=== PATIENT | female | born 1990 | race American Indian/Alaskan Native ===

== ENCOUNTER 2016-09-28 13:26 | Outpatient (CLI) | payer MEDICAID | END 2016-09-28 13:27 | disposition home or self-care (01) | DX: Z36 Encounter for antenatal screening of mother (principal) ==

== ENCOUNTER 2016-11-06 09:44 | Outpatient (CLI) | payer MEDICAID | END 2016-11-06 09:45 | disposition home or self-care (01) | DX: Z11.3 Encounter for screening for infections with a predominantly sexual mode of transmission (principal) ==

== ENCOUNTER 2016-11-30 10:50 | Outpatient (CLI) | payer MEDICAID | END 2016-11-30 10:51 | DX: Z34.03 Encounter for supervision of normal first pregnancy, third trimester (principal) ==

== ENCOUNTER 2016-12-10 23:25 | Outpatient (CLI) | payer MEDICAID | END 2016-12-11 00:28 | disposition home or self-care (01) | DX: O36.8130 Decreased fetal movements, third trimester, not applicable or unspecified (principal); Z3A.37 37 weeks gestation of pregnancy ==

== ENCOUNTER 2016-12-21 10:19 | Outpatient (CLI) | payer MEDICAID | END 2016-12-21 10:20 | disposition home or self-care (01) | DX: Z01.812 Encounter for preprocedural laboratory examination (principal); O32.1XX0 Maternal care for breech presentation, not applicable or unspecified ==

== ENCOUNTER 2016-12-23 05:38 | Inpatient (IN) | payer MEDICAID ==
[2016-12-23] MEDS ORDERED: SODIUM CHLORIDE FLUSH 0.9% 10 ML SYRINGE IVP ONE ×4 (05:59→21:43)
[2016-12-23] MEDS ORDERED: ceFAZolin 1 GM in SODIUM CHLORIDE 0.9% MINIBAG 100 ML IV SCH (06:00)
[2016-12-23] MEDS ORDERED: CITRIC ACID/SODIUM CITRATE 15 ML UDC PO SCH (06:00)
[2016-12-23] MEDS ORDERED: LACTATED RINGERS 1,000 ML IV SCH ×3 (06:00→12:00)
[2016-12-23] MEDS ORDERED: TERBUTALINE 1 MG/ML VIAL SUBQ ONE (07:05)
[2016-12-23] MEDS ORDERED: METHYLERGONOVINE 0.2 MG/ML AMP IVP ONE (08:00)
[2016-12-23] MEDS ORDERED: OXYTOCIN 10 UNIT/ML VIAL IV ONE (08:00)
[2016-12-23] MEDS ORDERED: CARBOPROST TROMETHAMINE 250 MCG/ML AMP IM ONE (08:00)
[2016-12-23] MEDS ORDERED: LACTATED RINGERS 1,000 ML IV ONE (08:14)
[2016-12-23] MEDS ORDERED: KETOROLAC 30 MG/ML VIAL ONE (09:30)
[2016-12-23] MEDS ORDERED: OXYTOCIN/LACTATED RINGERS 250 ML IV ONE ×2 (10:06→15:37)
[2016-12-23] MEDS ORDERED: ONDANSETRON 4 MG/2 ML VIAL IVP PRN ×2 (11:28→14:00)
[2016-12-23] MEDS ORDERED: KETOROLAC 30 MG/ML VIAL IV SCH (12:00)
[2016-12-23] MEDS: diphenhydrAMINE 25 MG CAPSULE PO PRN (12:09)
[2016-12-23] MEDS: ACETAMINOPHEN 500 MG TABLET PO SCH ×2 (12:09→21:40)
[2016-12-23] MEDS ORDERED: METOCLOPRAMIDE 10 MG/2 ML VIAL IVP PRN (13:03)
[2016-12-23] MEDS ORDERED: NALOXONE 0.4 MG/ML VIAL IVP PRN (14:00)
[2016-12-23] MEDS ORDERED: NALBUPHINE 20 MG/ML AMP IVP PRN (14:00)
[2016-12-23] MEDS ORDERED: diphenhydrAMINE 25 MG CAPSULE PO PRN (14:00)
[2016-12-23] MEDS ORDERED: diphenhydrAMINE INJ 50 MG/ML VIAL IVP PRN (14:00)
[2016-12-23] MEDS: SIMETHICONE CHEW 80 MG TABLET PO SCH ×2 (15:40→21:41)
[2016-12-23] MEDS: KETOROLAC 30 MG/ML VIAL IV SCH ×2 (15:40→21:41)
[2016-12-23] MEDS: OXYTOCIN/LACTATED RINGERS 250 ML IV SCH ×2 (18:15→21:33)
[2016-12-23] MEDS: oxyCOD/ACETAMIN 5 MG/325 MG TABLET PO PRN (19:46)
[2016-12-23] MEDS: DOCUSATE SODIUM 100 MG CAPSULE PO SCH (20:03)
[2016-12-24] MEDS: oxyCOD/ACETAMIN 5 MG/325 MG TABLET PO PRN ×2 (02:00→15:39)
[2016-12-24] MEDS: OXYTOCIN/LACTATED RINGERS 250 ML IV SCH (04:28)
[2016-12-24] MEDS ORDERED: SODIUM CHLORIDE FLUSH 0.9% 10 ML SYRINGE IVP ONE ×3 (04:30→11:20)
[2016-12-24] MEDS: ACETAMINOPHEN 500 MG TABLET PO SCH ×3 (04:34→21:19)
[2016-12-24] MEDS: KETOROLAC 30 MG/ML VIAL IV SCH ×2 (04:34→10:30)
[2016-12-24] MEDS: DOCUSATE SODIUM 100 MG CAPSULE PO SCH ×2 (10:30→20:51)
[2016-12-24] MEDS ORDERED: ENOXAPARIN 80 MG/0.8 ML SYRINGE SUBQ SCH (11:00)
[2016-12-24] MEDS ORDERED: IOPAMIDOL-300 100 ML VIAL IVP ONE (12:04)
[2016-12-24] MEDS: SIMETHICONE CHEW 80 MG TABLET PO SCH ×3 (14:03→21:20)
[2016-12-24] MEDS: IBUPROFEN 800 MG TABLET PO SCH ×2 (15:38→21:19)
[2016-12-25] MEDS: IBUPROFEN 800 MG TABLET PO SCH ×4 (04:10→23:25)
[2016-12-25] MEDS: diphenhydrAMINE 25 MG CAPSULE PO PRN (04:50)
[2016-12-25] MEDS: ACETAMINOPHEN 500 MG TABLET PO SCH ×3 (06:21→23:28)
[2016-12-25] MEDS: SIMETHICONE CHEW 80 MG TABLET PO SCH ×3 (06:21→23:31)
[2016-12-25] MEDS: DOCUSATE SODIUM 100 MG CAPSULE PO SCH ×2 (10:58→21:54)
[2016-12-25] MEDS: oxyCOD/ACETAMIN 5 MG/325 MG TABLET PO PRN (21:54)
[2016-12-26] MEDS: IBUPROFEN 800 MG TABLET PO SCH (05:37)
[2016-12-26] MEDS: SIMETHICONE CHEW 80 MG TABLET PO SCH (05:38)
[2016-12-26] MEDS: ACETAMINOPHEN 500 MG TABLET PO SCH (08:17)
[2016-12-26] MEDS: DOCUSATE SODIUM 100 MG CAPSULE PO SCH (08:18)
== END 2016-12-26 10:20 | disposition home or self-care (01) | DRG 766 ==
PROC: 10D00Z1 Extraction of Products of Conception, Low, Open Approach (ICD-10-PCS; principal; 2016-12-23 07:30)
DX: O32.1XX0 Maternal care for breech presentation, not applicable or unspecified (principal); O99.89 Other specified diseases and conditions complicating pregnancy, childbirth and the puerperium; R07.81 Pleurodynia; Z3A.39 39 weeks gestation of pregnancy; Z37.0 Single live birth

== ENCOUNTER 2020-05-30 16:47 | Emergency (ER) | payer MEDICAID ==
--- NOTE | 2020-05-30 17:15 | ED Physician Documentation ---
PD HPI OPHTHO - Stated complaint Stated Complaint: DIZZY/LOSS OF VISION - Chief complaint Chief Complaint: Heent - History obtained from History obtained from: Patient - History of Present Illness Timing - onset: How many months ago (1) Timing - duration: Months (1) Timing - details: Gradual onset, Still present (noted some intermittent black "floaters" in right eye for the past month. Noted it more prominent the past couple of days, and was interfering with her vision enough today for her to feel concerned about driving. The floaters seem worse in sunlight. No flashing lights/ wavy lines. No quadrant loss.) Location: Right, Other (she has noted some occasional black spot/floaters left eye. No eye pain.) Associated symptoms: Loss of vision (in rounded areas that move with her changing position. She states she has normal vision in peripheral areas.). No: Redness, Swelling, Photophobia Contributing factors: No: Recent URI, FB, Blunt trauma, Wears contacts Similar symptoms before: Has not had sx before Recently seen: Not recently seen (stopped at her starch [employer] office (where she gets her Rx glasses) but no editorial cartoonist there at the time, just the starch cooker, who thought her eye seemed okay at the time.) Review of Systems Constitutional: denies: Fever, Chills Eyes: reports: Decreased vision (just in the black spots area, no quadrant field loss.), Discharge. denies: Photophobia, Irritation Nose: denies: Rhinorrhea / runny nose, Congestion, Sinus pressure / pain Throat: denies: Sore throat Respiratory: denies: Cough Skin: denies: Rash, Lesions Neurologic: reports: Headache (mild at times, not consistent, and no associated scotomata.) PD PAST MEDICAL HISTORY - Past Medical History Cardiovascular: None Respiratory: None Neuro: None Endocrine/Autoimmune: None - Present Medications Home Medications: Ambulatory Orders Medication Instructions Recorded Confirmed Cetirizine [ZyrTEC] 10 mg PO DAILY 05/30/20 05/30/20 - Allergies Allergies/Adverse Reactions: Allergies Allergy/AdvReac Type Severity Reaction Status Date / Time kiwi Allergy Intermediate Edema Uncoded 05/30/20 16:57 - Social History Smoking Status: Never smoker PD ED PE NORMAL - Vitals Vital signs reviewed: Yes - General General: Alert and oriented X 3, No acute distress, Well developed/nourished - HEENT HEENT: PERRL, EOMI, Moist mucous membranes - Neck Neck: Supple, no meningeal sign, No adenopathy PD ED PE EXPANDED - Eyes Eyes: PERRL, EOMI, Anterior chambers clear, Other (able to see in all quadrants peripherally. IOP is 18 by TonoPen. ). No: Papilledema (the fundus appears normal. The retinal vessels appear okay. There is some turbidity in psterior chamber lower lateral area, so could be c/w hemorrhage in posterior chamber. ) Results - Vitals Vitals: Vital Signs - 24 hr 05/30/20 05/30/20 16:55 18:57 Temperature 36.9 C Heart Rate 93 89 Respiratory 18 18 Rate Blood Pressure 118/76 108/78 O2 Saturation 98 100 Oxygen O2 Source Room air - Labs Labs: Laboratory Tests 05/30/20 18:53 POC Whole Bld Glucose 115 H PD MEDICAL DECISION MAKING - ED course Complexity details: re-evaluated patient (with right eye dilated, I could see better view and had similar to initial exam, with some turbid fluid right lower eye so I could not see all corners. ), considered differential (consider retinal detachment (partial), posterior vitrous hemorrhage, glaucoma (though not really the symptoms); does not sound like migraine pattern. Does not sound like elevated ICP. ), d/w patient ED course: will give her names for Ophthalmologists for recheck. Departure - Departure Disposition: 01 Home, Self Care Clinical Impression: Visual floaters Qualifiers: Laterality: right Qualified Code(s): H43.391 - Other vitreous opacities, right eye Retinal hemorrhage Qualifiers: Laterality: right Qualified Code(s): H35.61 - Retinal hemorrhage, right eye Condition: Stable Record reviewed to determine appropriate education?: Yes Instructions: Flashes and Floaters Follow-Up: Lopez Evans MD [Provider Admit Priv/Credential] - Comments: It looks like some small clumps of blood on the lower visual field. This typically is a small blood vessel that broke open in the back of the eye. Rest and sleep inclined and try to avoid any vigorous activity nor bending over and back up until follow-up. Follow-up with an landscaping specialist tomorrow. I gave her the name of Dr. Evans who is affiliated with the [facility]. Another possibility is [facility] in [place] (they are a extension of a group in [place] with the phone #[phone]); call them tomorrow and see if they would be able to see you if Dr. Evans cannot. Discharge Date/Time: 05/30/20 19:17
[2020-05-30] MEDS ORDERED: TROPICAMIDE 1% OPHTH 2 ML DROPS RIGHTEYE STA (18:12)
[2020-05-30] MEDS ORDERED: TROPICAMIDE 1% OPHTH 15 ML DROPS RIGHTEYE STA (18:27)
[2020-05-30 19:08] VITALS: BP 108/78
== END 2020-05-30 19:17 | disposition home or self-care (01) ==
LOC: ED 16:47
DX: H43.391 Other vitreous opacities, right eye (principal); H35.61 Retinal hemorrhage, right eye
CPT/HCPCS: 99282; 99283; A9270

== ENCOUNTER 2020-10-22 08:00 | Outpatient (CLI) | payer MEDICAID ==
[2020-10-23 17:56] LABS: CANDIDA GROUP DNA NEGATIVE (NEGATIVE); CANDIDA KRUSEI DNA NEGATIVE (NEGATIVE); TRICHOMONAS VAGINALIS DNA NEGATIVE (NEGATIVE)
[2020-10-23 22:11] LABS: TRICHOMONAS VAGINALIS DNA NEGATIVE (NEGATIVE)
== END 2020-10-22 23:59 | disposition home or self-care (01) ==
LOC: LAB.R 08:00
PROVIDERS: ATTEND Obstetrics & Gynecology
DX: R10.2 Pelvic and perineal pain (principal)
CPT/HCPCS: 87086; 87491; 87591; 87661; 87801

== ENCOUNTER 2020-11-26 16:26 | Outpatient (CLI) | payer MEDICAID ==
--- NOTE | 2020-11-26 17:26 | Ultrasound Report ---
PROCEDURE: Pelvic w/Transvaginal INDICATIONS: CHRONIC PELVIC PAIN TECHNIQUE: Real-time scanning was performed of the pelvic organs, with image documentation. Additional endovagi nal scanning was necessary due to incomplete visualization of the adnexal and endometrial structures by transabdominal scanning. COMPARISON: None. FINDINGS: Transabdominal and endovaginal ultrasound was performed with Doppler. The uterus measures 8.1 x 3.5 x 4.6 cm. The uterus is anteverted. Uterine echotexture is within lilia l limits. Endometrium is normal measuring 5 mm. No fibroids are identified. No nabothian cysts are pr esent. The right ovary measures 3.3 x 3.2 x 3.3 cm. There is a dominant follicle measuring 1.9 x 1.3 x 1.5 c m. The left ovary measures 2.3 x 1.6 x 2.1 cm. Normal-appearing follicles are seen on the left, approxim ately 10 to 12. No adnexal fluid. IMPRESSION: 1. Normal pelvic ultrasound. 2. Normal-appearing follicles bilaterally with a dominant follicle on the right. Reviewed by: Niraj Vogel on 11/26/2020 5:25 PM PST Approved by: Niraj Vogel on 11/26/2020 5:25 PM PST Station ID: [id number]
== END 2020-11-26 16:27 | disposition home or self-care (01) ==
LOC: DI 16:26
PROVIDERS: ATTEND Obstetrics & Gynecology
DX: R10.2 Pelvic and perineal pain (principal); G89.29 Other chronic pain